=== PATIENT | female | born 2000 | race Two or more races ===

== ENCOUNTER 2025-09-26 15:17 | Outpatient (CLI) | payer BC, OTHER ==
[2025-09-26 16:04] LABS: #Basophils 0.06 10x3/uL (0.0-0.2); #Eosinophils 0.31 10x3/uL (0.0-0.5); #Monocytes 0.63 10x3/uL (0.0-1.1); #Neutrophils 5.47 10x3/uL (1.5-8.4); %Basophils 0.6 % (0.0-2.0); %Eosinophils 3.2 % (0.0-6.0); %Lymphocytes 32.7 % (18.0-47.0); %Monocytes 6.5 % (0.0-10.0); %Neutrophils 56.8 % (40.0-75.0); Hematocrit 34.8 % (34.9-44.5); Hemoglobin 11.3 g/dL (12.0-15.5); Mean Corpuscular Hemoglobin 25.8 pg (27.0-33.0); Mean Corpuscular Volume 79.5 fL (81.6-98.3); Platelet Count 260 10x3/uL (150-450); Red Blood Cell (RBC) Count 4.38 10x6/uL (3.90-5.03); White Blood Cell (WBC) Count 9.65 10x3/uL (3.5-10.5)
[2025-09-26 16:49] LABS: Anion Gap 9 mmol/L (10-20); BUN (Urea Nitrogen) 11 mg/dL (7.0-18.7); Calc. Creatinine Clearance 0 mL/min (70-130); Calcium 8.7 mg/dL (7.8-10.44); Carbon Dioxide 23 mmol/L (22-29); Chloride 111 mmol/L (98-107); Glucose 87 mg/dL (70-105); Potassium 3.5 mmol/L (3.5-5.1); Sodium 139 mmol/L (136-145)
[2025-09-26 16:51] LABS: ALT (SGPT) 18 U/L (Less than 34); AST (SGOT) 14 U/L (11-34); Albumin 4.2 g/dL (3.1-4.5); Alkaline Phosphatase 57 U/L (40-110); Bilirubin, Direct 0.1 mg/dL (0.1-0.3); Bilirubin, Total 0.3 mg/dL (0.3-1.2)
[2025-09-26 16:52] LABS: BHCG - Serum Negative (NEGATIVE); Pregs Control Background? CLEAR/WHITE (CLR/WHITE); Pregs Control Bar Appear? YES (CONTROL BAR)
== END 2025-09-26 15:18 | disposition home or self-care (01) ==
LOC: CSHLAB 15:17
PROVIDERS: ATTEND Surgery
DX: Z01.818 Encounter for other preprocedural examination (principal); K81.9 Cholecystitis, unspecified
CPT/HCPCS: 80048; 80076; 84703; 85025; 93005; 93010

== ENCOUNTER 2025-09-30 05:41 | Day surgery (SDC) | payer BC, MEDICAID ==
[2025-09-26 15:43] VITALS: BMI 40.3
[2025-09-30] MEDS ORDERED: Bupivacaine/Epinephrine 0.25% 30 ML VIAL ONE (06:54)
[2025-09-30] MEDS ORDERED: CEFAZOLIN 2 GM VIAL ONE (06:55)
[2025-09-30] MEDS ORDERED: Glucagon 1 MG/ML KIT ONE (06:58)
[2025-09-30] MEDS ORDERED: Rocuronium Bromide 10 MG/ML (10ML VIAL) ONE (07:04)
[2025-09-30] MEDS ORDERED: PROPOFOL 40 ML ONE (07:04)
[2025-09-30] MEDS ORDERED: Lidocaine 1% PF 5 ML VIAL ONE (07:04)
[2025-09-30] MEDS ORDERED: PHENYLEPHRINE-NS 100 MCG/ML 10 ML SYRINGE ONE (08:00)
[2025-09-30] MEDS ORDERED: Ketorolac Tromethamine 30 MG (1 mL) VIAL ONE (08:10)
[2025-09-30] MEDS ORDERED: SUGAMMADEX SODIUM 200 MG/2 ML VIAL ONE (08:10)
[2025-09-30] MEDS ORDERED: HYDROcodone/Acetaminophen 5/325 mg Tablet ONE (09:27)
== END 2025-09-30 10:08 | disposition home or self-care (01) ==
LOC: CSHSDC 05:41
PROVIDERS: ATTEND Surgery
PROC: BF53200 Other Imaging of Gallbladder and Bile Ducts using Fluorescing Agent, Indocyanine Green Dye, Intraoperative (ICD-10-PCS; principal; 2025-09-30)
PROC: 0FT44ZZ Resection of Gallbladder, Percutaneous Endoscopic Approach (ICD-10-PCS; principal; 2025-09-30)
DX: K80.10 Calculus of gallbladder with chronic cholecystitis without obstruction (principal)
CPT/HCPCS: 47563; C9776; 36416; 47532; 88304; C1889; J1100; J1611; J1885; J2704; Q9967; S2900